=== PATIENT | female | born 1970 | race Caucasian/White ===

== ENCOUNTER → 2019-03-02 10:30 | Outpatient (BNVA) | payer MEDICAID, SELFPAY | PROVIDERS: Family Provider Nurse Practitioner Family; Visit Provider Obstetrics & Gynecology | DX: N76.0 Acute vaginitis (principal); B96.89 Other specified bacterial agents as the cause of diseases classified elsewhere | CPT/HCPCS: 87491; 87591 ==

== ENCOUNTER → 2019-09-07 16:09 | Outpatient (BNVA) | payer MEDICAID, SELFPAY | PROVIDERS: Family Provider Nurse Practitioner Family; Visit Provider Nurse Practitioner Family | DX: E03.9 Hypothyroidism, unspecified (principal); G62.9 Polyneuropathy, unspecified; B88.0 Other acariasis; J30.89 Other allergic rhinitis | CPT/HCPCS: 80053; 80061; 84443; 85025 ==

== ENCOUNTER 2020-02-01 10:39 | Outpatient (CLI) | payer MEDICAID, SELFPAY ==
--- NOTE | 2020-02-01 10:42 | MM_ITS ---
WS: [id number] Bilateral screening digital mammogram, 02/01/2020 Clinical Data: SCREENING Comparison: 11/24/2018, 11/05/2017, 10/31/2016, 10/11/2015, 10/01/2014, 09/11/2013, 09/09/2012, 08/10/2011, , 05/21/2007. Findings: The breast parenchymal pattern shows fibroglandular tissue. No spiculated masses or clustered calcifi cations are seen. There are no secondary signs of carcinoma. There is a mole marker on the right eva st. There are lymph nodes in the left axilla. MM/[id number] Impression: 1. Negative bilateral mammogram unchanged. 2. Recommend annual screening mammograms. BIRADS: 1-Negative FOLLOW UP: 1 Year Follow-up The CAD roller checker was used.
== END 2020-02-01 10:40 | disposition home or self-care (01) ==
LOC: RADSHAW 10:41
PROVIDERS: PCP Nurse Practitioner; Visit Provider Nurse Practitioner
DX: Z12.31 Encounter for screening mammogram for malignant neoplasm of breast (principal)
CPT/HCPCS: 77067

== ENCOUNTER → 2020-03-24 14:46 | Outpatient (BNVA) | payer MEDICAID, SELFPAY | PROVIDERS: PCP Nurse Practitioner; Visit Provider Nurse Practitioner | DX: G62.9 Polyneuropathy, unspecified (principal); E03.9 Hypothyroidism, unspecified; J30.89 Other allergic rhinitis | CPT/HCPCS: 80053; 84443 ==

== ENCOUNTER → 2020-04-27 16:33 | Outpatient (BNVA) | payer MEDICAID, SELFPAY | PROVIDERS: PCP Nurse Practitioner; Visit Provider Nurse Practitioner Family | DX: Z20.822 Contact with and (suspected) exposure to COVID-19 (principal) | CPT/HCPCS: 87635 ==

== ENCOUNTER → 2020-09-22 15:44 | Outpatient (BNVA) | payer MEDICAID, SELFPAY | PROVIDERS: PCP Nurse Practitioner; Visit Provider Nurse Practitioner | DX: E03.9 Hypothyroidism, unspecified (principal); Z13.6 Encounter for screening for cardiovascular disorders; G62.9 Polyneuropathy, unspecified; J30.89 Other allergic rhinitis | CPT/HCPCS: 80053; 80061; 84443 ==

== ENCOUNTER 2021-04-03 10:25 | Outpatient (CLI) | payer MEDICAID, SELFPAY ==
--- NOTE | 2021-04-03 11:00 | MM_ITS ---
WS: [id number] BILATERAL SCREENING DIGITAL MAMMOGRAM WITH CAD HISTORY: SCREENING COMPARISON: None available. Bilateral CC and MLO views submitted. Computer aided detection analyzed. Breast composition: There are scattered areas of fibroglandular density. No suspicious masses, microc alcifications or architectural distortion. Benign lymph node upper outer quadrant LEFT breast. MM/[place] [id number] IMPRESSION: BI-RADS: 2-Benign FOLLOW UP: 1 Year Follow-up
== END 2021-04-03 10:26 | disposition home or self-care (01) ==
PROVIDERS: PCP Nurse Practitioner; Visit Provider Nurse Practitioner
DX: Z12.31 Encounter for screening mammogram for malignant neoplasm of breast (principal)
CPT/HCPCS: 77067

== ENCOUNTER → 2021-04-11 10:34 | Outpatient (BNVA) | payer MEDICAID, SELFPAY | PROVIDERS: PCP Nurse Practitioner; Visit Provider Nurse Practitioner | DX: E03.9 Hypothyroidism, unspecified (principal); J30.89 Other allergic rhinitis; G62.9 Polyneuropathy, unspecified | CPT/HCPCS: 80053; 84443 ==

== ENCOUNTER → 2021-09-18 11:23 | Outpatient (BNVA) | payer MEDICAID, SELFPAY | PROVIDERS: PCP Nurse Practitioner; Visit Provider Nurse Practitioner | DX: G62.9 Polyneuropathy, unspecified (principal); E03.9 Hypothyroidism, unspecified; Z13.6 Encounter for screening for cardiovascular disorders; J30.89 Other allergic rhinitis; Z12.11 Encounter for screening for malignant neoplasm of colon | CPT/HCPCS: 80053; 80061; 82607; 84443 ==

== ENCOUNTER → 2021-10-19 11:25 | Outpatient (BNVA) | payer MEDICAID, SELFPAY | PROVIDERS: PCP Nurse Practitioner; Visit Provider Surgery | DX: Z12.11 Encounter for screening for malignant neoplasm of colon (principal) | CPT/HCPCS: 99024 ==

== ENCOUNTER 2022-01-31 06:27 | Day surgery (SDC) | payer MEDICAID, SELFPAY ==
[2021-12-19 09:17] VITALS: BMI 31.8
--- NOTE | 2022-01-31 06:41 | P.HP_ITS ---
Same Day Surgery H&P Indication for Procedure/HPI DATE OF PROCEDURE: January 31, 2022 CHIEF COMPLAINT/INDICATIONFOR SURGICAL PROCEDURE: Screening colonoscopy PREOP DIAGNOSIS: Screening colonoscopy PLANNED PROCEDURE: Operation Date: 01/31/22 08:00 Proposed Procedures p Colonoscopy 34850,Z12.11(Not Applicable) - Bird Loomis MD This is a pleasant 51 years old female patient referred to my practice for screening colonoscopy. Patient does not have history of bleeding per rectum or history of colon cancer or change in bowel habits. Apart from the occult blood positive in stool per patient's description. ROS All systems have been reviewed negative except as for the above or per problem list. Medications/Allergies* Home Medications Medication Instructions Recorded Confirmed Type probiotic 1 tab PO DAILY 04/27/20 01/31/22 History Allergies/Adverse Reactions Allergy/AdvReac Type Severity Reaction Status Date / Time chlorpheniramine Allergy Diziness Verified 01/31/22 06:47 [From Cardec (phenylephrin-chlorphn)] phenylephrine Allergy Diziness Verified 01/31/22 06:47 [From Cardec (phenylephrin-chlorphn)] Pertinent History/Comorbid Conditions* Medical History (Updated 10/10/21 @ 13:43 by BELKIS Bowen-C) Adult onset hypothyroidism Dyspareunia - vaginal vault atrophy noted and granulation tissue has resolved. She would benefit from some vaginal estrogen. Discussed with patient findings, benefit, risks, indications, contraindications and use of vaginal estrogen Environmental and seasonal allergies Neuropathy Well woman exam (~10/02/19) Surgical History (Updated 09/07/19 @ 16:08 by BELKIS Lieberman-C) History of delivery 1995- Performed in [place], [place] History of hysterectomy 12/26/2016--[facility]---- Performed per Dr. Griffith; BENIGN PATHOLOGY History of hysteroscopy with polypectomy, 09/19/2016--Performed per Dr. Griffith at [facility] in [place], [place] History of tubal ligation 1997- Performed in at [facility] in [place], [place]. History of vaginal surgery 03/12/2018- excision of vaginal cuff granulation tissue, performed at [facility], Dr. Griffith Family History (Updated 10/09/21 @ 13:40 by Kathy Orona RN) Diabetes Sister Brother X 2 Leukemia Father Patient denies medical problems Unknown Denies family history of: heart disease, stroke, breast cancer, ovarian cancer, uterine cancer,or colon cancer. Hypertension Sister Thyroid condition Sister Denies family history of Colon cancer Ovarian cancer Clotting disorder Heart disease Breast cancer Anesthesia complication Bleeding disorder Uterine cancer Stroke Social History Smoking and tobacco status: never smoked Second hand smoke exposure: No Smoking risk assessment/counseling performed?: No Alcohol intake: never Desire information about alcohol rehabilitation?: No Counseling given: No Desire information about substance/drug rehabilitation?: No Counseling given: No Adopted: No Caregiver/support person: No Lives independently: Yes Household members: spouse Housing: House Marital status: Number of children: 2 service: No Current occupational status: disabled History of recent travel: No Current gender identity: Female Additional social history: Well balanced diet Pertinent Exam Findings alert, oriented x 3, clear to auscultation bilaterally, regular rate & rhythm and procedure specific exam findings (Abdominal exam nontender nondistended soft) Recommendations Surgery/Procedure today (Colonoscopy with possible biopsy) Other Plans: Plan of care; After thorough history and physical examination and reviewing the chart, plan to perform screening colonoscopy. I discussed with the patient in details the risks,benefits,alternatives and indications.The risk of aspiration, bleeding, soft tissue injury, perforation of the colon ,missed lesions and other potential concomitant complications were explained to the patient in details,also the potential need for Laproscoy/Laparotomy to repair any related complications including but not limited to colectomy and or Closotomy.The patient understood this well and did agree to proceed. Rationale was carefully and clearly discussed with the patient.Appropriate informed consent have been reviewed and signed All questions have been answered and all concerns have been addressed to patient's satisfaction. Verbal and written Instructions were given to the patient for colonoscopy prep Coding Level of Care Code Acute Pre K Special Education Teacher for Mandi Parisi
[2022-01-31 06:46] VITALS: BP 137/83; PULSE 73; RESP 18; TEMP 36.1; O2SAT 97
[2022-01-31] MEDS: sodium chloride 0.9% 1,000 ML 30 ML IV (06:57)
--- NOTE | 2022-01-31 06:59 | P.ANESASSM_ITS ---
Pre-Anesthetic Assessment Height/Weight: Height 1.6 m Weight 81.647 kg Temp Pulse Resp BP Pulse Ox O2 Del Method 97.0 F L 73 18 137/83 97 01/31/22 06:46 01/31/22 06:46 01/31/22 06:46 01/31/22 06:46 01/31/22 06:46 01/31/22 06:46 Preop Diagnosis: Screening colonoscopy Operation Date: 01/31/22 08:00 Proposed Procedures p Colonoscopy 31191,Z12.11(Not Applicable) - Bird Loomis MD Familial anesthetic complications: None Was Beta Yonathan taken within 24 hours: N/A Was Clonidine taken within 24 hours: N/A Last intake: Intake Last Liquid Date 01/30/22 Last Liquid Time 23:00 Last Solid Date 01/29/22 Social No alcohol and No tobacco Exam alert, oriented x 3, clear to auscultation bilaterally and regular rate & rhythm Airway Mallampati: Class III Dentition: full Metabolic Thyroid Disease Anesthetic Plan ASA status: 2 Anesthesia: MAC Risk of > 500 ml blood loss (7ml/kg in children): No Medications/Allergies Home Medications Medication Instructions Recorded Confirmed Last Taken Type probiotic 1 tab PO DAILY 04/27/20 01/31/22 01/30/22 History fluticasone propionate 50 1 spray intranasal DAILY #15.8 mL 09/18/21 01/31/22 01/30/22 Rx mcg/actuation nasal spray,suspension (Flonase Allergy Relief) levothyroxine 75 mcg tablet 75 mcg PO DAILY #90 tabs 09/18/21 01/31/22 01/30/22 Rx (Synthroid) loratadine 10 mg tablet (Claritin) 10 mg PO DAILY 90 days #90 tabs 09/18/21 01/31/22 01/30/22 Rx zonisamide 100 mg capsule 100 mg PO BID #180 caps 09/18/21 01/31/22 01/30/22 Rx (Zonegran) Allergies Allergy/AdvReac Type Severity Reaction Status Date / Time chlorpheniramine Allergy Diziness Verified 01/31/22 06:47 [From Cardec (phenylephrin-chlorphn)] phenylephrine Allergy Diziness Verified 01/31/22 06:47 [From Cardec (phenylephrin-chlorphn)] Current Medications Generic Name Dose Route Start Last Admin Trade Name Elaine PRN Reason Stop Dose Admin Sodium Chloride 1,000 mls @ 30 mls/hr 01/31/22 06:45 01/31/22 06:57 Sodium Chloride 0.9% IV 02/01/22 06:44 30 mls/hr .Q24H FRANCISCO Administration PFS Anesthesia Medical History (Updated 10/10/21 @ 13:43 by ENRIQUE Bowen) Adult onset hypothyroidism Dyspareunia - vaginal vault atrophy noted and granulation tissue has resolved. She would benefit from some vaginal estrogen. Discussed with patient findings, benefit, risks, indications, contraindications and use of vaginal estrogen Environmental and seasonal allergies Neuropathy Well woman exam (~10/02/19) Surgical History History of delivery 1995- Performed in [place], [place] History of hysterectomy 12/26/2016--[facility]---- Performed per Dr. Griffith; BENIGN PATHOLOGY History of hysteroscopy with polypectomy, 09/19/2016--Performed per Dr. Griffith at [facility] in [place], [place] History of tubal ligation 1997- Performed in at [facility] in [place], [place]. History of vaginal surgery 03/12/2018- excision of vaginal cuff granulation tissue, performed at [facility], Dr. Griffith Family History (Updated 10/09/21 @ 13:40 by Kathy Orona RN) Sister Hypertension Diabetes Thyroid condition Brother Diabetes X 2 Unknown Patient denies medical problems Denies family history of: heart disease, stroke, breast cancer, ovarian cancer, uterine cancer,or colon cancer. Father Leukemia Denies family history of Colon cancer Ovarian cancer Clotting disorder Heart disease Breast cancer Anesthesia complication Bleeding disorder Uterine cancer Stroke Social History Smoking and tobacco status: never smoked Second hand smoke exposure: No Smoking risk assessment/counseling performed?: No Alcohol intake: never Desire information about alcohol rehabilitation?: No Counseling given: No Desire information about substance/drug rehabilitation?: No Counseling given: No Adopted: No Caregiver/support person: No Lives independently: Yes Household members: spouse Housing: House Marital status: Number of children: 2 service: No Current occupational status: disabled History of recent travel: No Current gender identity: Female Additional social history: Well balanced diet Data Anesthesia Cardiac Studies: 2 No Data to Display
[2022-01-31 08:35] VITALS: BP 120/79; PULSE 75; RESP 16; TEMP 36.1; O2SAT 100
[2022-01-31 08:40] VITALS: BP 142/88; PULSE 70; RESP 18; O2SAT 99
[2022-01-31 08:50] VITALS: BP 132/86; PULSE 65; RESP 18; O2SAT 100
--- NOTE | 2022-01-31 15:57 | ANE.PACU2 ---
Inpatient post-anesthesia follow up: Airway intact: Yes Vital signs: Temperature 97.0 F Pulse Rate 65 Respiratory Rate 18 Blood Pressure 132/86 Pulse Oximetry 100 Oxygen Delivery Me thod Room Air Oxygen Flow Rate Fraction of Inspir ed Oxygen Hydration adequate: Yes Nausea and vomiting: No Pain level: 1 Mental status: Baseline
== END 2022-01-31 09:10 | disposition home or self-care (01) ==
PROVIDERS: PCP Family Medicine; Visit Provider Surgery
PROC: 0DJD8ZZ Inspection of Lower Intestinal Tract, Via Natural or Artificial Opening Endoscopic (ICD-10-PCS; CPT 45330; 2022-01-31 08:00)
DX: Z12.11 Encounter for screening for malignant neoplasm of colon (principal); Z53.8 Procedure and treatment not carried out for other reasons; E03.9 Hypothyroidism, unspecified
CPT/HCPCS: 45330; J2704; J7030

== ENCOUNTER 2022-02-02 13:51 | Outpatient (CLI) | payer MEDICAID, SELFPAY ==
--- NOTE | 2022-02-02 14:10 | MM_ITS ---
WS: [id number] RIGHT 3D TOMOSYNTHESIS DIGITAL MAMMOGRAPHY WITH CAD CLINICAL INFORMATION: RT BREAST PAIN HISTORY: RIGHT breast pain and soreness COMPARISON: 04/03/2021 and 02/01/2020 TECHNIQUE: 3 views of the right breast were obtained. FINDINGS: Scattered fibroglandular densities of the right breast. No suspicious parenchymal abnormalities in th e marked area of interest. Ultrasound is pending. No suspicious focal mass, asymmetry, calcifications, or architectural distortion. RIGHT breast parenc hyma appears unchanged. ULTRASOUND BREAST RIGHT TECHNIQUE: Ultrasound right breast focused area of concern. CLINICAL INFORMATION: RT BREAST PAIN COMPARISON: None. FINDINGS: Ultrasound RIGHT breast at the 11:00 position 4 cm from the nipple in the area of patient concern. No underlying parenchymal abnormalities. No cystic or solid lesions in this location. Additional area of patient concern at the 11:00 position demonstrates a normal-appearing lymph node w ith normal fatty hilum measuring 12 x 9 x 13 mm. No suspicious abnormalities. No suspicious lesions t o target for biopsy. MM/[place] [id number] IMPRESSION: BI-RADS: 2-Benign FOLLOW UP: 1 Year Follow-up Recommend return to annual screening mammography.
== END 2022-02-02 13:52 | disposition home or self-care (01) ==
LOC: RAD 13:51
PROVIDERS: PCP Family Medicine; Visit Provider Family Medicine
DX: N64.4 Mastodynia (principal)
CPT/HCPCS: 76642; 77061; G0279

== ENCOUNTER 2022-02-08 06:29 | Day surgery (SDC) | payer MEDICAID, SELFPAY ==
[2022-02-06 10:33] VITALS: BMI 31.8
[2022-02-08 06:47] VITALS: BP 135/76; PULSE 72; RESP 18; TEMP 36.1; O2SAT 100
[2022-02-08] MEDS: sodium chloride 0.9% 1,000 ML 30 ML IV (06:50)
--- NOTE | 2022-02-08 07:02 | W.PM.OPSUD ---
Surgery/Procedure H&P Update DATE OF PROCEDURE: February 08, 2022 DATE H&P PERFORMED: 01/31/22 H&P UPDATE INFORMATION: I have reviewed H&P completed within last 30 days, I have examined patient prior to procedure and No changes to prior documentation PREOP DIAGNOSIS: Screening colonoscopy PRIMARY INDICATION FOR PROCEDURE: The same PLANNED PROCEDURE: Operation Date: 02/08/22 07:45 Proposed Procedures p 48686 colon Z12.11(Not Applicable) - Bird Loomis MD
--- NOTE | 2022-02-08 08:02 | ANES.PREANE2 ---
Pre-Anesthetic Assessment Height/Weight: Height 1.6 m Weight 81.647 kg Temp Pulse Resp BP Pulse Ox O2 Del Method 97.0 F L 72 18 135/76 100 02/08/22 06:47 02/08/22 06:47 02/08/22 06:47 02/08/22 06:47 02/08/22 06:47 02/08/22 06:47 Preop Diagnosis: Screening colonoscopy Operation Date: 02/08/22 07:45 Proposed Procedures p 14074 colon Z12.11(Not Applicable) - Bird Loomis MD Familial anesthetic complications: none Was Beta Yonathan taken within 24 hours: N/A Was Clonidine taken within 24 hours: N/A Last intake: Intake Last Liquid Date 02/07/22 Last Liquid Time 20:00 Last Solid Date 02/07/22 Last Solid Time 20:00 Social No alcohol and No tobacco Exam alert and oriented x 3 Airway Submandibular: within normal limits Cervical ROM: within normal limits Mallampati: Class II Dentition: full History/ROS No significant complaints Metabolic Thyroid Disease Anesthetic Plan ASA status: 2 Anesthesia: Anesthesia Evaluation and MAC Medications/Allergies Home Medications Medication Instructions Recorded Confirmed Last Taken Type probiotic 1 tab PO DAILY 04/27/20 02/06/22 02/06/22 History fluticasone propionate 50 1 spray intranasal DAILY #15.8 mL 09/18/21 02/06/22 02/06/22 Rx mcg/actuation nasal spray,suspension (Flonase Allergy Relief) levothyroxine 75 mcg tablet 75 mcg PO DAILY #90 tabs 09/18/21 02/06/22 02/06/22 Rx (Synthroid) loratadine 10 mg tablet (Claritin) 10 mg PO DAILY 90 days #90 tabs 09/18/21 02/06/22 02/06/22 Rx zonisamide 100 mg capsule 100 mg PO BID #180 caps 09/18/21 02/06/22 02/06/22 Rx (Zonegran) lactulose 10 gram/15 mL (15 mL) 15 ml PO BID 7 days #210 mL 02/01/22 02/06/22 02/06/22 Rx oral solution peg 3350-electrolytes 236 240 ml PO Q10M #4,000 mL 02/01/22 02/06/22 02/06/22 Rx gram-22.74 gram-6.74 gram-5.86 gram solution (Golytely) Allergies Allergy/AdvReac Type Severity Reaction Status Date / Time chlorpheniramine Allergy Diziness Verified 01/31/22 06:47 [From Cardec (phenylephrin-chlorphn)] phenylephrine Allergy Diziness Verified 01/31/22 06:47 [From Cardec (phenylephrin-chlorphn)] Current Medications Generic Name Dose Route Start Last Admin Trade Name Freq PRN Reason Stop Dose Admin Sodium Chloride 1,000 mls @ 30 mls/hr 02/08/22 06:45 02/08/22 06:50 Sodium Chloride 0.9% IV 02/09/22 06:44 30 mls/hr .Q24H FRANCISCO Administration PFS Anesthesia Medical History (Updated 10/10/21 @ 13:43 by ENRIQUE Bowen) Adult onset hypothyroidism Dyspareunia - vaginal vault atrophy noted and granulation tissue has resolved. She would benefit from some vaginal estrogen. Discussed with patient findings, benefit, risks, indications, contraindications and use of vaginal estrogen Environmental and seasonal allergies Neuropathy Well woman exam (~10/02/19) Surgical History History of delivery 1995- Performed in [place], [place] History of hysterectomy 12/26/2016--[facility]---- Performed per Dr. Griffith; BENIGN PATHOLOGY History of hysteroscopy with polypectomy, 09/19/2016--Performed per Dr. Griffith at [facility] in [place], [place] History of tubal ligation 1997- Performed in at [facility] in [place], [place]. History of vaginal surgery 03/12/2018- excision of vaginal cuff granulation tissue, performed at [facility], Dr. Griffith Family History (Updated 10/09/21 @ 13:40 by Kathy Orona RN) Sister Hypertension Diabetes Thyroid condition Brother Diabetes X 2 Unknown Patient denies medical problems Denies family history of: heart disease, stroke, breast cancer, ovarian cancer, uterine cancer,or colon cancer. Father Leukemia Denies family history of Colon cancer Ovarian cancer Clotting disorder Heart disease Breast cancer Anesthesia complication Bleeding disorder Uterine cancer Stroke Social History Smoking and tobacco status: never smoked Second hand smoke exposure: No Smoking risk assessment/counseling performed?: No Alcohol intake: never Desire information about alcohol rehabilitation?: No Counseling given: No Desire information about substance/drug rehabilitation?: No Counseling given: No Adopted: No Caregiver/support person: No Lives independently: Yes Household members: spouse Housing: House Marital status: Number of children: 2 service: No Current occupational status: disabled History of recent travel: No Current gender identity: Female Additional social history: Well balanced diet Data Anesthesia Cardiac Studies: No Data to Display
[2022-02-08 08:25] VITALS: BP 114/81; PULSE 73; RESP 18; TEMP 36.1; O2SAT 99
--- NOTE | 2022-02-08 08:27 | ANE.PACU2 ---
Inpatient post-anesthesia follow up: Airway intact: Yes Vital signs: Temperature 97.0 F Pulse Rate 72 Respiratory Rate 18 Blood Pressure 135/76 Pulse Oximetry 100 Oxygen Delivery Me thod Room Air Oxygen Flow Rate Fraction of Inspir ed Oxygen Hydration adequate: Yes Nausea and vomiting: No Pain level: 1 Mental status: Baseline
[2022-02-08 08:41] VITALS: BP 117/81; PULSE 73; RESP 18; O2SAT 98
== END 2022-02-08 08:59 | disposition home or self-care (01) ==
PROVIDERS: PCP Family Medicine; Visit Provider Surgery
PROC: 0DJD8ZZ Inspection of Lower Intestinal Tract, Via Natural or Artificial Opening Endoscopic (ICD-10-PCS; CPT 45378; principal; 2022-02-08 07:45)
DX: Z12.11 Encounter for screening for malignant neoplasm of colon (principal); E03.9 Hypothyroidism, unspecified
CPT/HCPCS: 45378; J2704; J7030

== ENCOUNTER 2022-04-10 08:29 | Outpatient (CLI) | payer MEDICAID, SELFPAY ==
--- NOTE | 2022-04-10 08:54 | MM_ITS ---
WS: [id number] VIEWS: MLO and CC views both breasts. 3D digital tomosynthesis is also included in this exam. Comparison made with prior exam of 10/31/2016, 11/05/2017, 11/24/2018, 02/01/2020 and 04/03/2021.. Findings: There was no sign of mass, architectural distortion or suspicious calcification in either breast. Sc attered fibroglandular densities MM/[place] [id number] Impression: BI-RADS: 2-Benign FOLLOW-UP: 1 Year Follow-up This mammogram was also analyzed by the Computer Aided Detection System R2 Imag e Director Field Services.
== END 2022-04-10 08:30 | disposition home or self-care (01) ==
LOC: RAD 08:33
PROVIDERS: PCP Family Medicine; Visit Provider Family Medicine
DX: Z12.31 Encounter for screening mammogram for malignant neoplasm of breast (principal)
CPT/HCPCS: 77063; 77067

== ENCOUNTER → 2022-08-28 10:59 | Outpatient (BNVA) | payer MEDICAID, SELFPAY | PROVIDERS: PCP Family Medicine; Visit Provider Podiatrist Foot & Ankle Surgery | DX: M21.612 Bunion of left foot (principal); M77.42 Metatarsalgia, left foot; L90.9 Atrophic disorder of skin, unspecified; M21.6X2 Other acquired deformities of left foot | CPT/HCPCS: 73630; 99204 ==

== ENCOUNTER → 2023-04-01 11:02 | Outpatient (BNVA) | payer MEDICAID, SELFPAY | PROVIDERS: PCP Family Medicine; Visit Provider Nurse Practitioner Family | DX: E03.8 Other specified hypothyroidism (principal); G62.9 Polyneuropathy, unspecified | CPT/HCPCS: 80053; 80061; 82306; 83036; 84443; 85025 ==

== ENCOUNTER 2023-04-12 12:32 | Outpatient (CLI) | payer MEDICAID, SELFPAY ==
--- NOTE | 2023-04-12 13:05 | MM_ITS ---
WS: [id number] BILATERAL 3D TOMOSYNTHESIS DIGITAL SCREENING MAMMOGRAPHY WITH CAD CLINICAL INFORMATION: SCREENING HISTORY: Screening mammogram. No current complaints. COMPARISON: 2022 TECHNIQUE: Bilateral CC and MLO views. FINDINGS: The breasts are composed of heterogeneous fibroglandular density tissue, which can limit the detectio n of small underlying mass lesions. No suspicious mass, asymmetry, calcifications, or architectural d istortion. No evidence of malignancy. IMPRESSION: MM/[place] [id number] BI-RADS: 1-Negative FOLLOW UP: 1 Year Follow-up Recommend return to annual screening mammography.
== END 2023-04-12 12:33 | disposition home or self-care (01) ==
LOC: RAD 12:32
PROVIDERS: PCP Family Medicine; Visit Provider Family Medicine
DX: Z12.31 Encounter for screening mammogram for malignant neoplasm of breast (principal); R92.323 Mammographic fibroglandular density, bilateral breasts
CPT/HCPCS: 77063; 77067

== ENCOUNTER 2023-05-13 08:51 | Outpatient (CLI) | payer MEDICAID, SELFPAY ==
--- NOTE | 2023-05-13 09:00 | CT_ITS ---
WS: [id number] Exam: CT sinus wo con* [id number] Date/Time of Exam: 05/13/2023 9:22 AM Reason For Exam: Left-sided facial swelling DLP: 383.[address] scans at [facility] use at least one of these dose optimization techniques: automated e xposure control; mA and/or kV adjustment per patient size (includes targeted exams where dose is matc hed to clinical indication); or iterative reconstruction. There is mild chronic sinusitis involving the bilateral maxillary and ethmoid sinuses with minimal mu cosal thickening. 8 mm retention cyst is noted in the LEFT maxillary sinus. No masses or significant fluid collections are noted. Slight rightward nasal septal deviation. The mastoid air cells are clear . There are small bilateral tubular fluid collections identified along the lateral margins of both ma sseter muscles most pronounced on the LEFT. These fluid collections may originate from the bilateral parotid glands. IMPRESSION: 1. Minimal chronic maxillary and ethmoid sinus disease with slight mucosal thickening. 8 mm retention cyst in the LEFT maxillary sinus. 2. There are tubular appearing fluid collections extending along both the RIGHT and LEFT masseter mus cles most pronounced on the LEFT. These collections may originate from the bilateral parotid glands. Further evaluation with ultrasound as well as ENT consultation might be considered.
== END 2023-05-13 08:52 | disposition home or self-care (01) ==
LOC: RAD 08:51
PROVIDERS: PCP Nurse Practitioner Family; Visit Provider Nurse Practitioner Family
DX: R22.0 Localized swelling, mass and lump, head (principal); J32.0 Chronic maxillary sinusitis
CPT/HCPCS: 70486

== ENCOUNTER → 2023-05-21 10:41 | Outpatient (BNVA) | payer MEDICAID, SELFPAY | PROVIDERS: PCP Nurse Practitioner Family; Visit Provider Otolaryngology | DX: R22.0 Localized swelling, mass and lump, head (principal); J34.1 Cyst and mucocele of nose and nasal sinus | CPT/HCPCS: 99204; 99205 ==

== ENCOUNTER 2023-06-25 16:15 | Outpatient (CLI) | payer MEDICAID, SELFPAY ==
--- NOTE | 2023-06-25 16:45 | MR_ITS ---
WS: [id number] MRI NECK WITH CONTRAST TECHNIQUE: Noncontrast axial T1, axial T2 FSE fat sat, coronal T2 fat sat, coronal T1, coronal T1 fat sat, sagittal T2 fat sat, plus contrast enhanced coronal, sagittal, and axial T1 fat sat images obta ined. CLINICAL INFORMATION: Swelling on left side of face COMPARISON: CT sinus 05/13/2023 FINDINGS: Diffuse lobular marked dilatation of the bilateral parotid ducts with associated enhancement LEFT gre ater than RIGHT. Suggestion of segmental strictures involving the LEFT greater than RIGHT parotid dorothy ts. No visualized obstructing calculi on this no drainable abscess or fluid collection. Study. No vis ualized obstructing calculi on the prior CT. Parotid glands are otherwise normal in appearance. Normal submandibular glands. Proximal 7th and 8th cranial nerves appear normal. Normal vascular flow voids at the skull base. Para nasal sinuses are well aerated. Mastoid air cells are well aerated. Normal posterior nasopharynx. Nor mal parapharyngeal fat. Normal optic chiasm and pituitary infundibulum. MR/MR orbit face neck wo/w* [id number] IMPRESSION: 1. Diffuse marked segmental lobular dilatation of the bilateral parotid ducts (Sialectasis). No visualized obstructing lesions on this study. Recommend corre lation with history of parotitis. 2. Diffuse enhancement involving the LEFT greater than RIGHT parotid ducts wit h areas of segmental narrowing involving the LEFT greater than RIGHT duct suspi cious for strictures with recurrent or ongoing infection or inflammation. No ab scess. 3. Parotid duct dilatation (Sialectasis) can be seen with recurrent sialoadeni tis, Sjogren syndrome, salivary duct strictures, and ongoing recurrent infectio n. Recommend correlation with clinical history and symptoms. 4. Parotid gland parenchyma otherwise appears relatively normal 5. Normal submandibular glands. 6. Paranasal sinuses and mastoid air cells well aerated. 7. Mild central canal stenosis in the upper cervical spine at C3-C4 with a sma ll disc protrusion. This can be further evaluated cervical spine MRI.
[2023-06-25] MEDS: gadobenate dimeglumine 20 mL vial IV (17:13)
== END 2023-06-25 16:16 | disposition home or self-care (01) ==
LOC: RAD 16:15
PROVIDERS: PCP Nurse Practitioner Family; Visit Provider Otolaryngology
DX: R93.0 Abnormal findings on diagnostic imaging of skull and head, not elsewhere classified (principal); K11.8 Other diseases of salivary glands; M48.02 Spinal stenosis, cervical region
CPT/HCPCS: 70543; A9577

== ENCOUNTER → 2023-07-04 11:30 | Outpatient (BNVA) | payer MEDICAID, SELFPAY | PROVIDERS: PCP Nurse Practitioner Family; Visit Provider Otolaryngology | DX: K11.8 Other diseases of salivary glands (principal) | CPT/HCPCS: 99213; 99214 ==

== ENCOUNTER → 2023-10-03 13:50 | Outpatient (BNVA) | payer MEDICAID, SELFPAY | PROVIDERS: PCP Nurse Practitioner Family; Visit Provider Nurse Practitioner Family | DX: E03.8 Other specified hypothyroidism (principal); E55.9 Vitamin D deficiency, unspecified; G62.9 Polyneuropathy, unspecified | CPT/HCPCS: 80053; 80061; 82306; 84443; 85025 ==

== ENCOUNTER → 2024-03-18 13:25 | Outpatient (BNVA) | payer MEDICAID, SELFPAY | PROVIDERS: PCP Nurse Practitioner Family; Visit Provider Nurse Practitioner Family | DX: E03.8 Other specified hypothyroidism (principal); E78.2 Mixed hyperlipidemia | CPT/HCPCS: 80053; 80061; 82306; 84443; 85025 ==

== ENCOUNTER → 2024-03-30 11:14 | Outpatient (BNVA) | payer MEDICAID, SELFPAY | PROVIDERS: PCP Nurse Practitioner Family; Visit Provider Nurse Practitioner Family | DX: D72.819 Decreased white blood cell count, unspecified (principal) | CPT/HCPCS: 85025 ==

== ENCOUNTER 2024-04-13 14:32 | Outpatient (CLI) | payer MEDICAID, SELFPAY ==
--- NOTE | 2024-04-13 | MM_ITS ---
WS: [id number] BILATERAL 3D TOMOSYNTHESIS DIGITAL SCREENING MAMMOGRAPHY WITH CAD CLINICAL INFORMATION: ANNUAL SCREENING HISTORY: Screening mammogram. No current complaints. COMPARISON: 2023 TECHNIQUE: Bilateral CC and MLO views. FINDINGS: Scattered fibroglandular densities bilaterally. Slightly spiculated asymmetric density upper outer LEFT breast near the 12 o'clock position. Recommend further evaluation with LEFT breast diagnostic mammography and ultrasound if persistent. Unremarkable RIGHT breast. MM/MM scr tomosynthesis [id number] IMPRESSION: DENSITY: There are scattered areas of fibroglandular density. BI-RADS: 0 - Incomplete: Need additional imaging evaluation. FOLLOW UP: Need Additional Imaging Recommend further evaluation with LEFT breast diagnostic mammography and ultras ound if persistent.
== END 2024-04-13 14:33 | disposition home or self-care (01) ==
PROVIDERS: PCP Nurse Practitioner Family; Visit Provider Family Medicine
DX: Z12.31 Encounter for screening mammogram for malignant neoplasm of breast (principal); R92.323 Mammographic fibroglandular density, bilateral breasts; N63.25 Unspecified lump in the left breast, overlapping quadrants
CPT/HCPCS: 77063; 77067

== ENCOUNTER 2024-05-11 11:59 | Outpatient (CLI) | payer MEDICAID, SELFPAY ==
--- NOTE | 2024-05-11 12:45 | MM_ITS ---
WS: [id number] LEFT 3D TOMOSYNTHESIS DIGITAL MAMMOGRAPHY WITH CAD CLINICAL INFORMATION: R92.8 - Other abnormal and inconclusive findings on diagn... HISTORY: Additional views COMPARISON: 05/11/2024 TECHNIQUE: 3 views of the left breast were obtained. FINDINGS: Scattered fibroglandular densities of the left breast. Previously described asymmetric density upper outer LEFT breast compresses out on the spot compression views. No new suspicious normalities. MM/MM diag LT tomosynthesis [id number] IMPRESSION: DENSITY: There are scattered areas of fibroglandular density. BI-RADS: 2 - Benign. FOLLOW UP: 1 Year Follow-up Recommend return to annual screening mammography.
== END 2024-05-11 12:00 | disposition home or self-care (01) ==
PROVIDERS: PCP Nurse Practitioner Family; Visit Provider Nurse Practitioner Family
DX: R92.8 Other abnormal and inconclusive findings on diagnostic imaging of breast (principal); R92.322 Mammographic fibroglandular density, left breast
CPT/HCPCS: 77061; G0279

== ENCOUNTER → 2024-08-25 12:34 | Outpatient (BNVA) | payer MEDICAID, SELFPAY | PROVIDERS: PCP Nurse Practitioner Family; Visit Provider Nurse Practitioner Family | DX: E55.9 Vitamin D deficiency, unspecified (principal); E78.2 Mixed hyperlipidemia; I10 Essential (primary) hypertension; E03.8 Other specified hypothyroidism | CPT/HCPCS: 80053; 80061; 82306; 84443; 85025 ==

== ENCOUNTER → 2024-10-08 14:14 | Outpatient (BNVA) | payer MEDICAID, SELFPAY | PROVIDERS: PCP Nurse Practitioner Family; Visit Provider Dermatology | DX: L57.8 Other skin changes due to chronic exposure to nonionizing radiation (principal); L91.8 Other hypertrophic disorders of the skin; D22.5 Melanocytic nevi of trunk; D22.39 Melanocytic nevi of other parts of face; D48.5 Neoplasm of uncertain behavior of skin | CPT/HCPCS: 11102; 99203 ==

== ENCOUNTER 2024-10-18 10:30 | Emergency (ER) | payer MEDICAID, SELFPAY ==
--- OUTSIDE RECORDS SUMMARY | 2017-01-31 06:30 | XMS_ITS | Continuity of Care Document ---
Author Organization [facility] Address [id number] [address] Phone Care Team Providers Care Rental Clerk Name Role Phone Unavailable Unavailable Unavailable Allergies, Adverse Reactions, Alerts Substance Reaction Status Criticality No Known Allergies Active No Inform ation Medications Medication Instructions Dosage Effective Dates (start - stop) Status Comments Lowman 7.5 mg-325 mg tablet take 1 tablet by oral route every 6 hours as needed for breakthrough pain. - Active Periogard 0.12 % mouthwash This is an oral rinse. Swish with one capful for 30 seconds then spit out. Twice a day. DO NOT EAT OR DRINK FOR ONE HOUR FOLLOWING. - Active 1 Bottle TIROSINT (unknown strength) take 1 capsule by oral route every day Not Available - Active Procedures Procedure Date Surgical Removal Of Erupted Tooth Requir ing Elevat Surgical Removal Of Erupted Tooth Requir ing Elevat Removal Of Impacted Tooth Partially Bony IV Moderate (conscious) Sedation/analges ia, 15 Min IV Moderate (conscious) Sedation/analges ia, 15 Min EDR Approval Note Limited Oral Evaluation Problem Focused EDR Approval Note Advance Directives Directive Yes / No Effective Date File Name No Information Encounters Encounter Description Practice Location Reason(s) For Visit Diagnoses Date Provider Providers Copied on Encounter [facility], [id number] [facility], [place], [place], [id number], [place] tel:[phone] [facility] Encounter for dental exam and cleaning w/o abnormal findings No Information [facility], [id number] [facility], [place], [place], [id number], [place] tel:[phone] [facility] Encounter for dental exam and cleaning w/o abnormal findings No Information Family History Family Member Type Diagnosis Age At Onset No Information Payers Payer name Insurance type Covered alliance party ID Authorvirgilioindira padminilopez(s) D Medicaid [id number] Social History Type Description Quantity Date Captured Comments Alcohol Use Details No Caffeine Use Details Unknown Tobacco Use Status No Information Smoking Status No Information Sex Female Chief Complaint And Reason For Visit No Information Reason For Referral Reason For Referral No Information History Of Present Illness Encounter Date Complaint History Of Prese nt Illness No Information Functional Status Date Functional Assessmen t No Information Instructions Date Instruction Additional Infor mation No Information Assessments Type Assessment Date No Information Patient Care Teams Name Effective Dates (start - stop) Status Members No Information
[2024-10-18 10:46] VITALS: BP 129/79; PULSE 85; RESP 20; TEMP 36.4; O2SAT 97
--- NOTE | 2024-10-18 10:50 | ED_ITS ---
HPI - Dental/Oral General: Chief complaint: Dental/Oral Stated complaint: dental pain and swelling Time Seen by Provider: 10/18/24 10:50 History of Present Illness: 53-year-old female presents to the [facility] ency room with complaints of pain in her jaw. She had the first molar removed from the left mandible 4 days ago. Complaining of increased pain no fever sweats or chills. She has not seen a dentist back who removed to the tooth. Associated symptoms: Denies fever(s) Related Data Home Medications ?Medication ?Instructions ?Recorded ?Confirmed probiotic 1 tab PO DAILY 04/27/2009/19 Previous Rx's ?Medication ?Instructions ?Recorded estradiol 0.01% (0.1 mg/gram) 1 g vaginal DAILY #42.5 grams 10/28/23 vaginal cream cholecalciferol (vitamin D3) 50 50 mcg PO DAILY 90 day s #90 caps 08/25/24 mcg (2,000 unit) capsule fluticasone propionate 50 1 spray intranasal DAILY #15 .8 mL 08/25/24 mcg/actuation nasal spray,suspension (Flonase Allergy Relief) levothyroxine 75 mcg tablet 75 mcg PO DAILY 90 days #9 0 tabs 08/25/24 (Synthroid) lisinopril 20 mg tablet 20 mg PO DAILY #90 tabs 0710/12 loratadine 10 mg tablet (Claritin) 10 mg PO DAILY 90 d ays #90 tabs 08/25/24 hydrochlorothiazide 25 mg tablet 25 mg PO DAILY PRN sw elling #30 10/15/24 tabs clindamycin HCl 300 mg capsule 300 mg PO QID 10 days # 40 caps 10/18/24 (Cleocin HCl) diclofenac sodium 75 mg 75 mg PO Q12H PRN pain #20 t abs 10/18/24 tablet,delayed release Allergies Allergy/AdvReac Type Severity Reaction Status Date / Time chlorpheniramine (From Allergy Diziness Verified 10/15/24 10:45 Cardec (phenylephrin-chlorphn)) phenylephrine (From Cardec Allergy Diziness Verified 10/15/24 10:45 (phenylephrin-chlorphn)) Review of Systems Const: Denies: fever(s) or chills ENMT: Reports: dental pain Card: Denies: chest pain Resp: Denies: dyspnea GI: Denies: abdominal pain : Denies: dysuria, urinary frequency or urinary urgency Musc: Denies: neck pain or back pain Skin/Breast: Denies: rash PFSH ED PFSH: Medical History Adult onset hypothyroidism Well woman exam (~10/02/19) Environmental and seasonal allergies Neuropathy Dyspareunia - vaginal vault atrophy noted and granulation tissue has resolved. She would benefit from some vaginal estrogen. Discussed with patient findings, benefit, risks, indications, contraindications and use of vaginal estrogen Surgical History History of colonoscopy History of hysterectomy 12/26/2016--[facility]---- Performed per Dr. Griffith; BENIGN PATHOLOGY History of hysteroscopy with polypectomy, 09/19/2016--Performed per Dr. Griffith at [facility] in [place], [place] History of vaginal surgery 03/12/2018- excision of vaginal cuff granulation tissue, performed at [facility], Dr. Griffith History of delivery 1995- Performed in [place], [place] History of tubal ligation 1997- Performed in at [facility] in [place], [place]. Family History Sister Hypertension Diabetes Thyroid disease Brother Diabetes X 2 Unknown Patient denies medical problems Denies family history of: heart disease, stroke, breast cancer, ovarian cancer, uterine cancer,or colon cancer. Father Leukemia Denies family history of Colon cancer Ovarian cancer Clotting disorder Heart disease Breast cancer Anesthesia complication Bleeding disorder Uterine cancer Stroke Social History Smoking and tobacco/nicotine status: never used tobacco/nicotine Second hand smoke exposure: Yes ( & daughter smokes) Alcohol intake: never Substance/Drug Use: never Additional social history: Well balanced diet Adopted: No Caregiver/support person: No Lives independently: Yes Household members: spouse Housing: House Marital status: Number of children: 2 service: No Current occupational status: disabled Do you think of yourself as: Straight/Heterosexual Current gender identity: Female Physical Exam Const: COMMON NORMALS: no acute distress GENERAL APPEARANCE: cooperative and comfortable ORIENTATION/CONSCIOUSNESS: Yes awake, Yes oriented to person, Yes oriented to place and Yes oriented to time HENMT: COMMON NORMALS: normocephalic, atraumatic and hearing grossly normal bilaterally HEAD & SCALP: normocephalic and atraumatic OTHER: Oropharynx clear posterior pharyngeal wall normal gums show no significant swelling. Left first molar in the mandible is absent. There is some portion of the socket visualized no purulent drainage no swelling at the gumline no palpable cervical lymphadenopathy Resp: COMMON NORMALS: normal respiratory effort, No retractions, No use of accessory muscles and clear to auscultation bilaterally AUSCULTATION: clear to auscultation bilaterally Cardio: COMMON NORMALS: regular rate, regular rhythm and No murmurs present (Cardio) RATE: regular rate RHYTHM: regular rhythm Neuro: SENSORIUM/ORIENTATION: Yes oriented to person, Yes oriented to place and Yes oriented to time Course Vital Signs: Vital signs: Vital Signs Temperature 97.6 F 10/18/24 10:46 Pulse Rate 64 10/18/24 11:32 Respiratory Rate 20 H 10/18/24 10:46 Blood Pressure 96/67 10/18/24 11:32 Pulse Oximetry 97 10/18/24 11:32 Oxygen Delivery Me thod Room Air 10/18/24 11:19 MDM - Dental/Oral Medical Decision Making Alveolar osteitis. Discharge patient home started on clindamycin 300 4 times daily for 10 days diclofenac as needed can use [id number] topical clove oil as well. Follow-up with dentist for definitive care No radiology studies performed this visit Discharge Plan Discharge Patient Disposition: Home Clinical Impression: Alveolar osteitis Condition: Stable Prescriptions: New clindamycin HCl [Cleocin HCl] 300 mg capsule 300 mg PO QID 10 Days Qty: 40 0RF diclofenac sodium 75 mg tablet,delayed release (DR/EC) 75 mg PO Q12H PRN (Reason: pain) Qty: 20 0RF No Action probiotic 1 tab PO DAILY estradiol 0.01 % (0.1 mg/gram) cream 1 g vaginal DAILY Qty: 42.5 3RF Rx Instructions: daily for 1 month then twice a week hydrochlorothiazide 25 mg tablet 25 mg PO DAILY PRN (Reason: swelling) Qty: 30 2RF levothyroxine [Synthroid] 75 mcg tablet 75 mcg PO DAILY 90 Days Qty: 90 1RF lisinopril 20 mg tablet 20 mg PO DAILY Qty: 90 1RF fluticasone propionate [Flonase Allergy Relief] 50 mcg/actuation spray,suspension 1 spray intranasal DAILY Qty: 15.8 5RF Rx Instructions: administer into each nostril cholecalciferol (vitamin D3) 50 mcg (2,000 unit) capsule 50 mcg PO DAILY 90 Days Qty: 90 1RF loratadine [Claritin] 10 mg tablet 10 mg PO DAILY 90 Days Qty: 90 1RF Discharge Orders: Discharge ED (Routine); Ordered 10/18/24 Ordered By: Doc Arroyo Referrals: Marcela Centeno FNP-C [Primary Care Provider, Family Practice] Discharge Diet: As Directed Discharge Activity: Limit activity as instructed Patient Instructions: Opioid Safety, Pain Management, Patient Portal & Rhiannon Instructions Activity Restrictions/Additional Instructions: Thank you for choosing [facility] for your healthcare needs today. It is very important that you follow up as instructed or that you return to the Emergency Department should you have concerns or if your condition changes or worsens in any way. Emergency department visits are focused on emergent conditions, in some cases you may require further evaluation on an outpatient basis. You were seen in the emergency room with concerns about dry socket (aveolar osteitis). You are started on clindamycin 1 pill 4 times a day for 10 days he also given diclofenac to use for discomfort. Additionally you can use [id number] clove oil and a cotton ball or small bit of gauze and pack into the open wound. This provides a degree of pain relief as well. Follow-up with your dentist as soon as possible. (Please note that included in your discharge packet is information concerning opioid safety and pain management. This information is given to all patients were discharged from the ER regardless of their discharge diagnosis or the medicines they usually take or are prescribed.) Print Language: Czech Coding Level of Care Code ED Charging Machine Operator for Mandi Parisi
[2024-10-18 11:19] VITALS: BP 96/62; PULSE 64; O2SAT 96
[2024-10-18 11:32] VITALS: BP 96/67; PULSE 64; O2SAT 97
== END 2024-10-18 11:32 | disposition home or self-care (01) ==
PROVIDERS: Emergency Provider Family Medicine; PCP Nurse Practitioner Family
DX: M27.3 Alveolitis of jaws (principal)
CPT/HCPCS: 99283

== ENCOUNTER 2024-12-28 16:49 | Outpatient (CLI) | payer MEDICAID, SELFPAY ==
--- NOTE | 2024-12-28 17:15 | US_ITS ---
WS: [id number] ULTRASOUND SOFT TISSUES RIGHT forearm HISTORY: R22.31 - Localized swelling, mass and lump, right upper limb COMPARISON: None available. TECHNIQUE: 2-D and color Doppler imaging is submitted. Ultrasound directed to the area of interest by the patient. Images are labeled RIGHT forearm. No other localizing labeling included. Soft tissue palpable abnormality corresponds to a hyperechoic nodule measuring 0.7 x 0.4 x 0.8 cm. This is most consistent with a small lipoma. US/US soft tissue/extremity [id number] IMPRESSION: Hyperechoic nodule corresponds to the mass in the soft tissues of the RIGHT for earm. Most consistent with a small lipoma.
== END 2024-12-28 16:50 | disposition home or self-care (01) ==
LOC: RAD 16:49
PROVIDERS: PCP Nurse Practitioner Family; Visit Provider Nurse Practitioner Family
DX: R22.31 Localized swelling, mass and lump, right upper limb (principal)
CPT/HCPCS: 76882

== ENCOUNTER → 2025-01-26 11:50 | Outpatient (BNVA) | payer MEDICAID, SELFPAY | PROVIDERS: PCP Nurse Practitioner Family; Visit Provider Nurse Practitioner Family | DX: I10 Essential (primary) hypertension (principal); E03.8 Other specified hypothyroidism; E78.2 Mixed hyperlipidemia; E55.9 Vitamin D deficiency, unspecified | CPT/HCPCS: 80053; 80061; 82306; 82607; 84443; 85025 ==

== ENCOUNTER → 2025-02-17 12:47 | Outpatient (BNVA) | payer MEDICAID, SELFPAY | PROVIDERS: PCP Nurse Practitioner Family; Visit Provider Nurse Practitioner Family | DX: E87.5 Hyperkalemia (principal) | CPT/HCPCS: 80053 ==